=== PATIENT | female | born 1950 | race Caucasian/White ===

== ENCOUNTER 2017-02-03 17:09 | Emergency (ER) | payer MEDICARE ==
[2017-02-03 18:01] VITALS: BP 142/64
--- NOTE | 2017-02-03 18:26 | RAD ---
INDICATION: Right third digit injury COMPARISON: None TECHNIQUE: AP, lateral, and oblique views were obtained. FINDINGS: There is no acute fracture. 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 There is mild osteoarthritis about the PIP joint. There is soft tissue swelling. IMPRESSION: NO ACUTE FRACTURE.
--- NOTE | 2017-02-03 18:51 | UC ---
Upper Extremity HPI - HPI Summary HPI Summary: 66F presents with right middle finger injury. She tried to get a dog from cat and stuck fingers in its mouth and has puncture at proximal phalanx on lateral aspect towards the dorsum of the hand. She states swelling has increased to finger today. She has circumferential swelling of the phalanx of 3rd right, some erythema but not warm, tender from MCP up to distal finger but nontender over 3rd metacarpel and no edema present there. able to passive flex joint. she is not diabetic. She is right handed. <Mimi Hernandez - Last Filed: 02/03/17 20:47> <Cynthia Germain - Last Filed: 02/03/17 21:03> - History of Current Complaint Chief Complaint: UCUpperExtremity Stated Complaint: FINGER INJURY Time Seen by Provider: 02/03/17 18:31 - Allergies/Home Medications Allergies/Adverse Reactions: Allergies Allergy/AdvReac Type Severity Reaction Status Date / Time No Known Allergies Allergy Verified 11/09/14 19:34 Home Medications: Home Medications Cholecalciferol [Vitamin D-3] 2,000 unit PO 02/03/17 [History] Iron Combinations [Iron Complex] 1 cap PO 02/03/17 [History] PMH/Surg Hx/FS Hx/Imm Hx Endocrine History: Other Other Endocrine History: no DM Cardiovascular History: Other Other Cardiovascular History: no CAD - Surgical History Surgical History: Yes - Family History Known Family History: Positive: Hypertension - Social History Alcohol Use: Weekly Alcohol Amount: 1 glass Substance Use Type: None Smoking Status (MU): Never Smoked Tobacco <Mimi Hernandez - Last Filed: 02/03/17 20:47> Review of Systems Constitutional: Negative Skin: Rash Musculoskeletal: Decreased ROM - right middle finger All Other Systems Reviewed And Are Negative: Yes <Mimi Hernandez - Last Filed: 02/03/17 20:47> Physical Exam Triage Information Reviewed: Yes Appearance: Well-Appearing Vital Signs: Initial Vital Signs Temp 98.6 F 02/03/17 17:54 Pulse 77 02/03/17 17:54 Resp 18 02/03/17 17:54 BP 142/64 02/03/17 17:54 Pulse Ox 100 02/03/17 17:54 Vital Signs Reviewed: Yes Eyes: Positive: Conjunctiva Clear Respiratory: Positive: Lungs clear, Normal breath sounds Cardiovascular: Positive: RRR Musculoskeletal: Positive: Other: - circumferential swelling on phalanx of right middle finger, able to passive move finger with some pain, minimial erythema no warmth to area, nontender over right ring metacarpel and no erythema. puncture wound to lateral dorsum of proximal phalanx of right ring finger. nontender over tendon sheath Neurological Exam: Normal Psychological Exam: Normal Skin: Positive: Other - minimial redness right ring finger, laceration to left middle finger <Mimi Hernandez - Last Filed: 02/03/17 20:47> Vital Signs: Initial Vital Signs Temp 98.6 F 02/03/17 17:54 Pulse 77 02/03/17 17:54 Resp 18 02/03/17 17:54 BP 142/64 02/03/17 17:54 Pulse Ox 100 02/03/17 17:54 <Cynthia Germain - Last Filed: 02/03/17 21:03> Diagnostics - Radiology finger Xray Interpretation: No Acute Changes Radiology Interpretation Completed By: Radiologist <Mimi Hernandez - Last Filed: 02/03/17 20:47> Upper Extremity Course/Dx - Course Course Of Treatment: 66F presents with right middle finger injury. She tried to get a dog from cat and stuck fingers in its mouth and has puncture at proximal phalanx on lateral aspect towards the dorsum of the hand. She states swelling has increased to finger today. She has circumferential swelling of the phalanx of 3rd right, some erythema but not warm, tender from MCP up to distal finger but nontender over 3rd metacarpel and no edema present there. able to passive flex joint. she is not diabetic. She is right handed. on exam neurovascular intact. had dr germain evaluate and she agrees that does not appear to be tenosynovitis at moment but could progress to such. talked with dr flower and said do IV antibiotics and follow up tomorrow but likely just soft tissue swelling. got base line cbc and blood cultures. gave dose of rocephin here and will have start augmentin. warned of signs to go immediately to ED for. patient will follow up about blood pressure with primary. patient understand and agrees with plan. - Differential Dx/Diagnosis Differential Diagnosis/HQI/PQRI: Fracture (Closed), Other - tenosynovitis, dog bite, Provider Diagnoses: right middle finger injury, dog bite - Physician Notification/Consults Discussed Patient Care With: dr flower Time Discussed With Above Provider: 19:45 - give iv antibiotics and follow up tomorrow <Mimi Hernandez - Last Filed: 02/03/17 20:47> Discharge <Mimi Hernandez - Last Filed: 02/03/17 20:47> <Cynthia eGrmain - Last Filed: 02/03/17 21:03> - Discharge Plan Condition: Good Disposition: HOME Prescriptions: Amoxicillin/Clavulanate TAB* [Augmentin TAB 875*] 875 mg PO BID #20 tab Patient Education Materials: Animal Bite (ED) Referrals: Mimi Frances MD [Primary Care Provider] - Marlon Flower MD [Medical Doctor] - Additional Instructions: Call ortho office tomorrow as need to be seen Place ice on the area, elevate take Tylenol every 6 hours for pain Take Augmentin twice a day for 10 days Go immediately to ED if develop fever, if unable to move finger, if swelling travels to palm or any new or worsening symptoms Attestation Statement User Type: Provider - Evaluated patient at request of EMMETT. Pt with edema and erythema right <Cynthia Germain - Last Filed: 02/03/17 21:03>
[2017-02-03] MEDS ORDERED: cefTRIAXone VIAL(*) 1,000 MG in NS 0.9% 50 ML* 50 ML IVPB ONE (19:08)
[2017-02-03] MEDS ORDERED: cefTRIAXone VIAL(*) 1,000 MG VIAL ONE (19:40)
[2017-02-04 11:05] LABS: Hematocrit 36 % (35-47); Mean Corpuscular HGB Conc 34 g/dl (31-36); Mean Corpuscular Hemoglobin 31 pg (27-31); Mean Corpuscular Volume 92 fL (80-97); Mean Platelet Volume 9 um3 (7.4-10.4); Red Blood Count 3.91 10^6/ul (4.0-5.4); Red Cell Distribution Width 13 % (10.5-15); White Blood Count 10.2 10^3/ul (3.5-10.8)
== END 2017-02-03 20:16 | disposition home or self-care (01) ==
LOC: UCEAST 17:09
DX: S61.232A Puncture wound without foreign body of right middle finger without damage to nail, initial encounter (principal); W54.0XXA Bitten by dog, initial encounter; Y93.89 Activity, other specified; Y92.9 Unspecified place or not applicable
CPT/HCPCS: 36415; 73140; 85025; 87040; 96365; 99212; G0463; J0696

== ENCOUNTER 2018-08-10 18:28 | Emergency (ER) | payer BC, MEDICARE ==
--- NOTE | 2018-08-10 18:58 | UC ---
Head Injury HPI - HPI Summary HPI Summary: 68-year-old female presents with complaints of a head laceration to her posterior scalp after accidentally falling. She states that approximately 6 PM this evening she was walking with her dog, the dog started to run entangling her in the leash and causing her to fall backward onto some pavement striking the back of her head. States she did not lose consciousness and she has full recollection of the events during and immediately after the injury. She complains of a mild headache and posterior neck stiffness. Patient states that the wound was thoroughly cleansed prior to arrival in bleeding was controlled with direct pressure. Tetanus was given within the last 5 years. Denies visual disturbances, photophobia, dizziness, lightheadedness, speech difficulties, weakness, numbness, or tingling of the extremities, nausea, vomiting, or any other injury. - History Of Current Complaint Chief Complaint: UCHeadInjury Stated Complaint: HEAD LACERATION Time Seen by Provider: 08/10/18 18:56 Hx Obtained From: Patient Pain Intensity: 3 - Allergies/Home Medications Allergies/Adverse Reactions: Allergies Allergy/AdvReac Type Severity Reaction Status Date / Time codeine Allergy Nausea Verified 08/10/18 18:42 Home Medications: Home Medications Ibuprofen 400 mg PO ONCE PRN 08/10/18 [History Confirmed 08/10/18] Multivitamin with Iron [Multivitamins with Iron] 1 tab PO DAILY 08/10/18 [ History Confirmed 08/10/18] PMH/Surg Hx/FS Hx/Imm Hx Previously Healthy: Yes - Denies significant PMH - Surgical History Surgical History: None - Family History Known Family History: Positive: Hypertension - Social History Occupation: Retired Lives: With Family Alcohol Use: Occasionally Alcohol Amount: 1 glass Substance Use Type: None Smoking Status (MU): Never Smoked Tobacco Review of Systems All Other Systems Reviewed And Are Negative: Yes Skin: Positive: Other - Scalp laceration Eyes: Negative: Blurred Vision, Diplopia, Photophobia Respiratory: Positive: Negative Cardiovascular: Positive: Negative Gastrointestinal: Positive: Negative Genitourinary: Positive: Negative Musculoskeletal: Positive: Negative Neurological: Positive: Headache. Negative: Weakness, Paresthesia, Numbness Is Patient Immunocompromised?: No Physical Exam - Summary Physical Exam Summary: GENERAL APPEARANCE: Well developed, well nourished, alert and cooperative, and appears to be in no acute distress. HEAD: Normocephalic. Scalp linear scalp laceration approximately 1.5 cm in length that extends through the dermal layers to the posterior scalp. Bleeding controlled. EYES: Conjunctiva clear. No drainage. PERRL, EOM intact. Vision is grossly intact. EARS: External auditory canals and tympanic membranes clear, hearing grossly intact. NOSE: No nasal discharge. THROAT: Pharynx normal. No tonsilar inflammation, swelling, exudate, or lesions. Uvula midline. Oral cavity normal. Teeth and gingiva in good general condition. NECK: Neck supple, non-tender without lymphadenopathy. Full painless ROM. No midline cervical spine tenderness or deformities. Mild paraspinous soft tissue tenderness without spasm. CARDIAC: Normal S1 and S2. No S3, S4 or murmurs. Rhythm is regular. There is no peripheral edema, cyanosis or pallor. Extremities are warm and well perfused. Capillary refill is less than 2 seconds. Peripheral pulses intact. LUNGS: Clear to auscultation without rales, rhonchi, wheezing or diminished breath sounds. ABDOMEN: Positive bowel sounds. Soft, nondistended, nontender. No guarding or rebound. No masses or hepatosplenomegally. MUSKULOSKELETAL: ROM intact to all extremities. No joint erythema or tenderness. Normal muscular development. Normal gait. BACK: Examination of the spine reveals posture, no spinal deformity or tenderness, decreased range of motion or muscular spasm. NEUROLOGICAL: CN II-XII intact. Strength and sensation symmetric and intact throughout. Reflexes 2+ throughout. Cerebellar testing normal. SKIN: Skin normal color, texture and turgor. Triage Information Reviewed: Yes Vital Signs: Initial Vital Signs Temp 98.2 F 08/10/18 18:36 Pulse 75 08/10/18 18:36 Resp 18 08/10/18 18:36 BP 133/66 08/10/18 18:36 Pulse Ox 100 08/10/18 18:36 Vital Signs Reviewed: Yes Procedures - Procedure Summary Procedure Summary: Procedure note: Laceration repair of posterior scalp Informed consent was obtained before procedure started and the appropriate timeout was taken. The wound was thoroughly cleansed and explored. No FB noted. The wound margins were brought into good alignment and 3 staple were placed. Total length of the wound after repair was 1.5 cm. Estimated blood loss was minimal. Anticipatory guidance, as well as standard post-procedure care was discussed with patient. Return precautions are given. The patient tolerated the procedure well without complications. Patient is to follow up in 5-7 days for staple removal and evaluation of the laceration. Diagnostics - Radiology No standard instances Radiology Interpretation Completed By: Radiologist Summary of Radiographic Findings: EXAM: CT Head Without Contrast. EXAM DATE/ TIME: 08/10/2018 7:28 PM. CLINICAL HISTORY: 68 years old, female; Pain and injury or trauma; Other: Laceration/pain;. Patient HX: Right posterior head laceration and pain with neck stiffness after. fall today. Denies loc; Additional info: Head injury S/P fall from standing. position. TECHNIQUE: Imaging protocol: Axial computed tomography images of the head without. contrast. Radiation optimization: All CT scans at this facility use at least one of. these dose optimization techniques: automated exposure control; mA and/ or kV. adjustment per patient size (includes targeted exams where dose is matched to. clinical indication); or iterative reconstruction. COMPARISON: No relevant prior studies available. FINDINGS: Brain: No acute intracranial hemorrhage or extraaxial collection identified. Wynne/white differentiation is maintained with no evidence of acute infarct. Ventricles: Normal configuration. No hydrocephalus. Bones/joints: No acute fracture. Sinuses: Normal as visualized. No air fluid levels. Mastoid air cells: No mastoid effusion. Soft tissues: Small right posterior superior scalp laceration and hematoma. IMPRESSION: 1. No acute intracranial findings. 2. Right posterior superior scalp laceration and hematoma. EXAM: CT Cervical Spine Without Contrast. EXAM DATE/TIME: 08/10/2018 7:31 PM. CLINICAL HISTORY: 68 years old, female; Neck pain; Patient HX: Right posterior head laceration. and pain with neck stiffness after fall today. Denies loc; Additional info: Pain S/P fall from standing position. TECHNIQUE: Imaging protocol: Axial computed tomography images of the cervical spine. without contrast. Coronal and sagittal reformatted images were created and. reviewed. Radiation optimization : All CT scans at this facility use at least one of. these dose optimization techniques: automated exposure control; mA and/or kV adjustment per patient size (includes targeted exams where dose is matched to clinical indication); or iterative reconstruction. COMPARISON: No relevant prior studies available. FINDINGS: Vertebrae: No acute fracture or subluxation identified. Vertebral body heights are maintained. Mild multilevel degenerative disc disease is present, most pronounced at C4/C5 and C5/C6. Facet joint hypertrophy, most pronounced on the right at C2/C3 and C3/C4. There is straightening of the normal cervical lordosis which may be positional or secondary to muscle spasm. Discs/Spinal canal/Neural foramina: See Vertebrae Finding. Epidural space: No epidural hematoma. Prevertebral Space: Prevertebral soft tissues are normal. Soft tissues: Unremarkable. Lungs: Mild biapical pleural scarring. No pneumothorax. Thyroid gland: Normal in size but heterogeneous in appearance. IMPRESSION: 1. No acute findings. 2. Degenerative change as above Head Injury Course/Dx - Course Course Of Treatment: 68-year-old female presents with complaints of a head laceration to her posterior scalp after accidentally falling. She states that approximately 6 PM this evening she was walking with her dog, the dog started to run entangling her in the leash and causing her to fall backward onto some pavement striking the back of her head. States she did not lose consciousness and she has full recollection of the events during and immediately after the injury. She complains of a mild headache and posterior neck stiffness. Patient states that the wound was thoroughly cleansed prior to arrival in bleeding was controlled with direct pressure. Tetanus was given within the last 5 years. Denies visual disturbances, photophobia, dizziness, lightheadedness, speech difficulties, weakness, numbness, or tingling of the extremities, nausea, vomiting, or any other injury. Patient had a linear laceration that extended through the dermal layers to her posterior scalp with bleeding controlled, was neurologically intact, had some mild paraspinous tenderness of the soft tissues of the cervical spine without midline tenderness or deformities, and otherwise unremarkable exam. A CT of the brain and C-spine were obtained and were normal. Her laceration was repaired using 3 skin magui. Total length of the wound after repair was 1.5 cm. Patient elected to not receive topical anesthesia. She is to follow-up in 5-7 days to have the magui removed. Wound care, anticipatory guidance, and warning symptoms were reviewed with the patient. She verbalizes understanding and agrees with plan of care. - Differential Dx/Diagnosis Differential Diagnosis/HQI/PQRI: Cerebral Contusion, Concussion Without LOC, Contusion, Intracranial Bleed, Laceration, Other - cervical fracture, cervical strain Provider Diagnosis: Closed head injury without loss of consciousness, Scalp laceration, Cervical strain Discharge - Sign-Out/Discharge Documenting (check all that apply): Patient Departure All imaging exams completed and their final reports reviewed: Yes - Discharge Plan Condition: Stable Disposition: HOME Patient Education Materials: Head Injury (ED), Laceration (ED), Staple Care (ED ), Cervical Strain (ED) Referrals: No Primary Care Phys,NOPCP [Primary Care Provider] - Additional Instructions: The CT scan of your brain and cervical spine showed no acute injuries. Your scalp laceration was closed using magui. You will need to have these removed in 5-7 days. You may return here or follow-up with your primary care provider to have this done. You may shower and wash her hair as normal but avoid any heavy scrubbing over the area of the injury. Watch for signs of infection including fever greater than 100.5 F, redness that spreads, increased swelling, severe pain that is not managed with pain medication, or pus draining from the wound. Seek immediate medical attention should any of these occur. Take acetaminophen (Tylenol) or ibuprofen (Advil, Motrin) according to directions as needed for pain. You can also try using a heating pad to the neck to help reduce pain and relax the muscles. Seek immediate medical attention if you develop a severe headache, have any visual disturbances, one pupil is larger than the other, he developed any confusion, your difficult to arouse, have any seizure-like activity, develop slurred or difficulty speaking, have any weakness, numbness, or tingling in your extremities, difficulty ambulating, have persistent or projectile vomiting , or any worsening of symptoms. - Billing Disposition and Condition Condition: STABLE Disposition: Home
[2018-08-10 20:49] VITALS: BP 125/62
== END 2018-08-10 20:45 | disposition home or self-care (01) ==
LOC: UCEAST 18:28
DX: S01.01XA Laceration without foreign body of scalp, initial encounter (principal); S09.90XA Unspecified injury of head, initial encounter; S16.1XXA Strain of muscle, fascia and tendon at neck level, initial encounter; W18.39XA Other fall on same level, initial encounter; Y93.K1 Activity, walking an animal; Y92.9 Unspecified place or not applicable; Y99.8 Other external cause status; Z88.5 Allergy status to narcotic agent
CPT/HCPCS: 12001; 70450; 72125; 99211; G0463

== ENCOUNTER 2018-08-17 09:43 | Emergency (ER) | payer MEDICARE ==
--- NOTE | 2018-08-17 10:03 | UC ---
Laceration HPI - HPI Summary HPI Summary: 68 yo female presents for staple removal. She had 3 magui placed on 08/10 s/ fall. She has had no issues with the site such as drainage, pain, or swelling. Feeling well otherwise and denies any symptoms at this time. - History Of Current Complaint Stated Complaint: STAPLE REMOVAL Time Seen by Provider: 08/17/18 10:02 Hx Obtained From: Patient Laceration Location: Head - Allergies/Home Medications Allergies/Adverse Reactions: Allergies Allergy/AdvReac Type Severity Reaction Status Date / Time codeine AdvReac Nausea Verified 08/17/18 10:09 PMH/Surg Hx/FS Hx/Imm Hx - Additional Past Medical History Additional PMH: None - Surgical History Surgical History: None - Family History Known Family History: Positive: Hypertension - Social History Lives: With Family Alcohol Use: Occasionally Alcohol Amount: 1 glass Substance Use Type: None Smoking Status (MU): Never Smoked Tobacco Review of Systems All Other Systems Reviewed And Are Negative: Yes Constitutional: Positive: Negative Skin: Positive: Other - [address] scalp Respiratory: Positive: Negative Cardiovascular: Positive: Negative Neurological: Positive: Negative Psychological: Positive: Negative Physical Exam - Summary Physical Exam Summary: GENERAL: NAD. WDWN. No pain distress. SKIN: Right scalp with [address] Laceration well approximated and healed with scabbing. NTTP. No erythema, edema, or drainage. CHEST: No accessory muscle use. Breathing comfortably and in no distress. CV: Pulses intact. Cap refill <2seconds NEURO: Alert. PSYCH: Age appropriate behavior. Triage Information Reviewed: Yes Vital Signs: Vital Signs: Temp Pulse Resp BP Pulse Ox 97.7 F 75 14 124/65 100 08/17/18 10:05 08/17/18 10:05 08/17/18 10:05 08/17/18 10:05 08/17/18 10:05 Vital Signs Reviewed: Yes Laceration Course/Dx - Course/Dx Course Of Treatment: 3 magui removed without difficulty. Wound well approximated. No bleeding. - Diagnosis Provider Diagnosis: Removal of staple Discharge - Sign-Out/Discharge Documenting (check all that apply): Patient Departure All imaging exams completed and their final reports reviewed: No Studies - Discharge Plan Condition: Stable Disposition: HOME Patient Education Materials: Stitches Removal (ED) Referrals: Andrés Bill MD [Primary Care Provider] - Additional Instructions: If you develop a fever, shortness of breath, chest pain, new or worsening symptoms - please call your PCP or go to the ED immediately. - Billing Disposition and Condition Condition: STABLE Disposition: Home - Attestation Statements Provider Attestation: Per institutional requirements, I have reviewed the chart, however, I was not consulted specifically or made aware of this patient by the midlevel provider. I did not personally evaluate, interact with , or disposition this patient.
[2018-08-17 10:08] VITALS: BP 124/65
== END 2018-08-17 10:09 | disposition home or self-care (01) ==
LOC: UCEAST 09:43
DX: Z48.02 Encounter for removal of sutures (principal)

== ENCOUNTER 2023-05-05 08:05 | Observation (INO) ==
[~2023-05-05 08:05] MED LIST: D5W IVPB SCH; NS 0.9% IVPB SCH; OXALIPLATIN IVPB SCH; RITUXIMAB ABBS IVPB SCH
[2023-05-05] MEDS ORDERED: methylPREDNISolone SOD SUCC 125 mg 2 ML VIAL ONE (08:45)
[2023-05-05] MEDS ORDERED: diphenhydrAMINE 50 MG/ML INJ SYRINGE *CHOA ONE (08:45)
[2023-05-05] MEDS ORDERED: PALONOSETRON HCL 0.05 MG/ML (0.25 MG) SYRINGE (0.05 MG/ML) ONE (08:45)
[2023-05-05] MEDS: prednisoLONE 1% OPHTH.SUSP 5 ML OPHTH.SUSP BOTH EYES SCH (16:35)
[2023-05-05] MEDS: NS 0.9% IVPB SCH (16:35)
[2023-05-05] MEDS: CYTARABINE IVPB SCH (16:35)
[2023-05-05] MEDS ORDERED: Ondansetron ODT 4 mg TAB 4 MG TAB PO PRN (17:44)
[2023-05-05] MEDS: NS 0.9% 1000 ml BAG 1,000 ML IV SCH (19:32)
[2023-05-05] MEDS: Senna TAB 8.6 mg TAB PO PRN (20:47)
[2023-05-05] MEDS: Enoxaparin 40 MG/0.4 ML SYR SUBCUT SCH (20:48)
[2023-05-05] MEDS: Sulfamethox/Trimethoprim DS TAB 800/160 mg PO SCH (21:32)
[2023-05-06 06:36] LABS: Hematocrit 18.8 % (35-45); Hemoglobin 6.4 g/dL (11.5-14.3); Mean Corpuscular Hemoglobin 31.9 pg (27-33); Mean Corpuscular Hgb Conc 34.1 g/dL (31-36); Mean Corpuscular Volume 93.5 fL (80-97); Mean Platelet Volume 7.6 fL (7.5-11.2); Platelet Count 91 10^3/uL (150-450); Red Blood Count 2.01 10^6/uL (3.63-4.92); Red Cell Distribution Width 20.9 % (12-17); White Blood Count 7.4 10^3/uL (3.8-11.8)
[2023-05-06 06:40] LABS: Albumin 3.2 g/dL (3.2-5.2); Albumin/Globulin Ratio 1.4 (1-3); Calcium 7.3 mg/dL (8.6-10.3); Creatinine, Serum 0.83 mg/dL (0.51-0.95); Globulin 2.3 g/dL (2-4); Potassium 3.8 mmol/L (3.5-5.0); Total Bilirubin 0.3 mg/dL (0.2-1.0); Total Protein 5.5 g/dL (6.4-8.9); eGFR CKD-EPI 75.3 (>60)
[2023-05-06 06:50] LABS: ABS Lymphocytes 0.4 10^3/uL (1.0-4.8); ABS Monocytes 0.2 10^3/uL (0.0-0.9); ABS Neutrophils 6.7 10^3/uL (1.5-7.6); Eosinophil % 0.1 %; Lymphocyte % 5.5 %
[2023-05-06 08:09] LABS: Hematocrit 19.3 % (35-45); Hemoglobin 6.6 g/dL (11.5-14.3)
[2023-05-06 15:40] VITALS: BP 113/64
[2023-05-07] MEDS ORDERED: Sulfamethox/Trimethoprim DS TAB 800/160 mg PO SCH (09:00)
== END 2023-05-06 17:00 | disposition home or self-care (01) ==
LOC: MED 08:05 → CHOA 08:05
PROVIDERS: ADMIT Internal Medicine Hematology; ATTEND Internal Medicine Hematology

== ENCOUNTER 2023-09-20 17:07 | Inpatient (IN) ==
[2023-09-20] MEDS: Ondansetron 4 mg VIAL 2 MG/ML 2 ml VIAL IV ONE (17:56)
[2023-09-20 18:25] LABS: Hematocrit 27.6 % (35-45); Hemoglobin 9.7 g/dL (11.5-14.3); Mean Corpuscular Hemoglobin 34.1 pg (27-33); Mean Corpuscular Hgb Conc 35.3 g/dL (31-36); Mean Corpuscular Volume 96.7 fL (80-97); Red Blood Count 2.86 10^6/uL (3.63-4.92); Red Cell Distribution Width 15.4 % (12-17); White Blood Count 0.4 10^3/uL (3.8-11.8)
[2023-09-20 18:34] LABS: Activated Partial Thrombo Time 38.8 seconds (26.0-38.0); INR 1.27 (0.83-1.13)
[2023-09-20] MEDS: Lactated Ringers 1000 ml BAG 1,000 ML IV ONE ×2 (18:40→22:45)
[2023-09-20 18:50] LABS: Albumin 3.5 g/dL (3.2-5.2); Albumin/Globulin Ratio 1.3 (1-3); C Reactive Protein 202.5 mg/L (<8.01); Calcium 8.1 mg/dL (8.6-10.3); Creatinine, Serum 1.22 mg/dL (0.51-0.95); Globulin 2.8 g/dL (2-4); Total Bilirubin 0.7 mg/dL (0.2-1.0); Total Protein 6.3 g/dL (6.4-8.9); eGFR CKD-EPI 47.2 (>60)
[2023-09-20] MEDS: Iodixanol (CONTRAST) 320 MG/ML 100 ML SDV IV ONE (19:16)
[2023-09-20 19:29] LABS: High Sensitivity Troponin 1 Hr 34 pg/mL (<15)
[2023-09-20 19:35] LABS: ABS Lymphocytes 0.2 10^3/uL (1.0-4.8); ABS Monocytes 0.1 10^3/uL (0.0-0.9); ABS Neutrophils 0.2 10^3/uL (1.5-7.6); ABS Nucleated RBC 0.01 10^3/ul; Eosinophil % 0.2 %; Lymphocyte % 39.8 %; Mean Platelet Volume 9.5 fL (7.5-11.2); Platelet Count 32 10^3/uL (150-450)
[2023-09-20] MEDS: Cefepime 2 GM in Dextrose 2 GM/50 ML BAG IV ONE (20:04)
[2023-09-20] MEDS ORDERED: Zosyn per Pharmacy NOTE FOLLOW UP SCH (23:00)
[2023-09-20] MEDS: Piperacillin/Tazobac 3.375 BAG 3.375 GM/100 ML BAG IV ONE (23:52)
[2023-09-21] MEDS: ACETAMINOPHEN IV PRN (00:54)
[2023-09-21] MEDS: Piperacillin/Tazobactam 4.5 GM in NS 0.9% 100 ml BAG 100 ML IV SCH ×2 (04:18→21:19)
[2023-09-21 07:20] LABS: Calcium 8.4 mg/dL (8.6-10.3); Creatinine, Serum 1.25 mg/dL (0.51-0.95); Magnesium 1.4 mg/dL (1.9-2.7); Potassium 3.9 mmol/L (3.5-5.0); eGFR CKD-EPI 45.8 (>60)
[2023-09-21 07:25] LABS: Hematocrit 26.9 % (35-45); Hemoglobin 9.5 g/dL (11.5-14.3); Mean Corpuscular Hemoglobin 34.4 pg (27-33); Mean Corpuscular Hgb Conc 35.4 g/dL (31-36); Mean Corpuscular Volume 97.1 fL (80-97); Red Blood Count 2.77 10^6/uL (3.63-4.92); Red Cell Distribution Width 14.9 % (12-17); White Blood Count 0.3 10^3/uL (3.8-11.8)
[2023-09-21 08:33] LABS: ABS Lymphocytes 0.2 10^3/uL (1.0-4.8); ABS Neutrophils 0.1 10^3/uL (1.5-7.6); Eosinophil % 0.6 %; Lymphocyte % 46.7 %; Mean Platelet Volume 9.3 fL (7.5-11.2); Platelet Count 29 10^3/uL (150-450)
[2023-09-21 08:40] LABS: Urine Appearance Clear; Urine Bilirubin Negative (Negative); Urine Blood 2+ (Negative); Urine Color Light-Yellow; Urine Glucose Negative (Negative); Urine Ketones Negative (Negative); Urine Nitrite Negative (Negative); Urine Protein 1+ (>=30 mg/dL) (Negative); Urine Specific Gravity 1.028 (1.002-1.030); Urine Urobilinogen Negative (Negative); Urine pH 5.5 (5.0-8.0)
[2023-09-21 08:48] LABS: Urine Bacteria Absent /HPF (Absent); Urine Red Blood Cell 2+(6-10/hpf) /HPF (0-Trace); Urine White Blood Cell Trace(0-5/hpf) /HPF (0-Trace)
[2023-09-21] MEDS: Magnesium Sulfate 2 gm BAG 2 GM/50 ML BAG IVPB ONE (09:19)
[2023-09-21] MEDS: Magnesium Sulfate IV 1GM/100ML 1 GM/100 ML BAG IV ONE (11:01)
[2023-09-21] MEDS ORDERED: Ondansetron 4 mg VIAL 2 MG/ML 2 ml VIAL IV PRN (14:31)
[2023-09-21] MEDS: Lactated Ringers 1000 ml BAG 1,000 ML IV SCH (14:45)
[2023-09-21] MEDS: NS 0.9% 1000 ml BAG 1,000 ML IV SCH (14:54)
[2023-09-22 07:23] LABS: Calcium 8.1 mg/dL (8.6-10.3); Creatinine, Serum 1.02 mg/dL (0.51-0.95); Magnesium 1.8 mg/dL (1.9-2.7); Potassium 3.7 mmol/L (3.5-5.0); eGFR CKD-EPI 58.5 (>60)
[2023-09-22 08:48] LABS: ABS Lymphocytes 0.2 10^3/uL (1.0-4.8); ABS Monocytes 0.1 10^3/uL (0.0-0.9); ABS Neutrophils 0.3 10^3/uL (1.5-7.6); Anisocytosis 1+; Eosinophil % 0.3 %; Hematocrit 25.1 % (35-45); Lymphocyte % 30.2 %; Mean Corpuscular Hemoglobin 34.3 pg (27-33); Mean Corpuscular Hgb Conc 35.7 g/dL (31-36); Mean Platelet Volume 8.8 fL (7.5-11.2); Nucleated Red Blood Cells % 0.4 %/100WBC (0.0-0.8); Platelet Count 17 10^3/uL (150-450); Polychromasia 1+; Red Blood Count 2.61 10^6/uL (3.63-4.92); Red Cell Distribution Width 15.2 % (12-17); White Blood Count 0.6 10^3/uL (3.8-11.8)
[2023-09-22] MEDS: Sulfamethox/Trimethoprim DS TAB 800/160 mg PO SCH (10:20)
[2023-09-22] MEDS: Piperacillin/Tazobactam 4.5 GM in NS 0.9% 100 ml BAG 100 ML IV SCH (16:34)
[2023-09-22 17:47] LABS: Platelet Count 24 10^3/uL (150-450)
[2023-09-23 06:43] LABS: Calcium 7.8 mg/dL (8.6-10.3); Creatinine, Serum 0.95 mg/dL (0.51-0.95); Magnesium 1.5 mg/dL (1.9-2.7); Potassium 3.8 mmol/L (3.5-5.0); eGFR CKD-EPI 63.7 (>60)
[2023-09-23 07:22] LABS: ABS Lymphocytes 0.3 10^3/uL (1.0-4.8); ABS Monocytes 0.1 10^3/uL (0.0-0.9); ABS Neutrophils 0.5 10^3/uL (1.5-7.6); Eosinophil % 0.3 %; Hematocrit 23.8 % (35-45); Hemoglobin 8.5 g/dL (11.5-14.3); Mean Corpuscular Hemoglobin 34.4 pg (27-33); Mean Corpuscular Hgb Conc 35.8 g/dL (31-36); Mean Corpuscular Volume 96.3 fL (80-97); Mean Platelet Volume 8.9 fL (7.5-11.2); Nucleated Red Blood Cells % 0.1 %/100WBC (0.0-0.8); Platelet Count 18 10^3/uL (150-450); Red Blood Count 2.48 10^6/uL (3.63-4.92); Red Cell Distribution Width 14.4 % (12-17); White Blood Count 0.9 10^3/uL (3.8-11.8)
[2023-09-23] MEDS: Magnesium Sulfate 2 gm BAG 2 GM/50 ML BAG IVPB ONE (11:00)
[2023-09-23] MEDS: cefTRIAXone 1 gm/50 mL D5W 1 GM/50 ML BAG IV SCH (14:49)
[2023-09-23 21:47] LABS: Adenovirus F40/41 Negative (Negative); Astrovirus Negative (Negative); Cryptosporidium species Negative (Negative); Cyclospora cayetanensis Negative (Negative); Entamoeba histolytica Negative (Negative); Enteroaggregative E.coli(EAEC) Negative (Negative); Enteropathogenic Ecoli(EPEC) Positive (Negative); Enterotoxigenic Ecoli(ETEC) Negative (Negative); Norovirus GI/GII Negative (Negative); Plesiomonas shigelloides Negative (Negative); Salmonella species Negative (Negative); Sapovirus Negative (Negative); Shiga toxin producing E. coli Negative (Negative); Shigella/Enteroinvasive E.coli Negative (Negative); Specimen Source STOOL; Vibrio cholerae Negative (Negative); Yersinia species Negative (Negative)
[2023-09-24 06:26] LABS: Calcium 8.2 mg/dL (8.6-10.3); Creatinine, Serum 0.73 mg/dL (0.51-0.95); Magnesium 1.7 mg/dL (1.9-2.7); Potassium 3.6 mmol/L (3.5-5.0); eGFR CKD-EPI 87.3 (>60)
[2023-09-24 07:41] LABS: ABS Neutrophils 0.7 10^3/uL (1.5-7.6); Hematocrit 24.6 % (35-45); Hemoglobin 8.7 g/dL (11.5-14.3); Mean Corpuscular Hemoglobin 34.1 pg (27-33); Mean Corpuscular Hgb Conc 35.3 g/dL (31-36); Mean Corpuscular Volume 96.5 fL (80-97); Mean Platelet Volume 10.3 fL (7.5-11.2); Platelet Count 25 10^3/uL (150-450); Red Blood Count 2.55 10^6/uL (3.63-4.92); Red Cell Distribution Width 14.2 % (12-17); White Blood Count 1.4 10^3/uL (3.8-11.8)
[2023-09-24 08:08] LABS: ABS Lymphocytes 0.4 10^3/uL (1.0-4.8); ABS Monocytes 0.3 10^3/uL (0.0-0.9); Eosinophil % 1.3 %; Nucleated Red Blood Cells % 0.1 %/100WBC (0.0-0.8); RBC Morphology Normal (Normal)
[2023-09-24 14:36] VITALS: BP 90/59
[2023-09-24 16:15] LABS: Anaplasma phagocytophilum Negative (Negative); B. miyamotoi PCR, B Negative (Negative); Babesia divergens/MO-1 Negative (Negative); Babesia ducani Negative (Negative); Ehrlichia chaffeensis Negative (Negative); Ehrlichia ewingii/canis Negative (Negative); Ehrlichia muris eauclairensis Negative (Negative)
[2023-09-24 23:49] LABS: IgG Immunoblot Negative (Negative); IgM Immunoblot Negative (Negative)
== END 2023-09-24 16:45 | disposition home or self-care (01) | DRG 372 ==
LOC: EDHOLD 17:07 → ED 17:07 → SUATTDRO 21:11 → MED 09-21 08:06
PROVIDERS: ADMIT Internal Medicine; ATTEND Internal Medicine